=== PATIENT | female | born 1955 | race Caucasian/White ===

== ENCOUNTER 2022-10-25 10:00 | Outpatient (RCR) | payer MEDICARE, OTHER, SELFPAY | END 2022-12-09 15:40 | disposition home or self-care (01) | LOC: PT 10:00 | PROVIDERS: Visit Provider Neurological Surgery | DX: M43.16 Spondylolisthesis, lumbar region (principal) | CPT/HCPCS: 97010; 97014; 97110; 97163; 97530; G0283 ==